=== PATIENT | female | born 1935 | race Caucasian/White ===

== ENCOUNTER 2017-09-07 02:03 | Emergency (ER) | payer OTHER, MEDICARE ==
[~2017-09-07] VITALS: Ht 154.9 cm; Wt 52.2 kg
[~2017-09-07 02:03] MED LIST: ARNUITY ELLIP100 MCG INH; MACROBID 100 M100 MG PO
[2017-09-07 03:01] LABS: ABSOLUTE BASOPHIL COUNT 0 /CUMM (0.0-0.2); ABSOLUTE EOSINOPHIL COUNT 0 /CUMM (0.0-0.7); ABSOLUTE GRANULOCYTE CT 6.7 /CUMM (1.4-6.5); ABSOLUTE LYMPH COUNT 0.9 /CUMM (1.2-3.4); ABSOLUTE MONOCYTE COUNT 0.7 /CUMM (0.10-0.60); BASOPHIL % 0.1 % (0.0-2.0); EOSINOPHIL % 0.1 % (0-5); GRANULOCYTE % 80.9 % (42.2-75.2); MEAN CORPUSCULAR HGB 30.4 PG (27.0-31.0); MEAN CORPUSCULAR HGB CONC 33.7 G/DL (33.0-37.0); MEAN CORPUSCULAR VOLUME 90.2 FL (81.0-99.0); MEAN PLATELET VOLUME 9.6 FL (7.4-10.4); PLATELET COUNT 254 /CUMM (130-400); RED BLOOD CELL CT 4.43 /CUMM (4.20-5.40); WHITE BLOOD CELL COUNT 8.3 /CUMM (4.8-10.8)
--- NOTE | 2017-09-07 03:07 | ED GENERAL ADULT ---
History of Present Illness General Chief Complaint: General Adult Stated Complaint: BIBA KNEE PAIN; MULTIPLE COMPLAINTS Source: patient, old records, EMS Exam Limitations: no limitations Vital Signs & Intake/Output Vital Signs & Intake/Output Vital Signs Date Time Temp Pulse Resp B/P B/P Pulse O2 O2 Flow FiO2 Mean Ox Delivery Rate 09/07 0304 100.2 77 18 157/64 96 Room Air 09/07 0208 99.3 85 18 149/72 6 Room Air Allergies Coded Allergies: moxifloxacin (From AVELOX) (Severe, HIVES 09/07/17) azithromycin ("DOESN'T WORK" 09/07/17) Z-CHRISTIAN Uncoded Allergies: "RED ABX CAPSULE" (UNKNOWN 09/07/17) Reconcile Medications Cephalexin (Keflex) 500 MG CAPSULE 1 CAP PO TID uti Fluticasone Furoate (Arnuity Ellipta) 100 MCG BLST.W.DEV 1 PUFF INH DAILY COPD Nitrofurantoin Monohyd/M-Cryst (Macrobid 100 MG Capsule) 100 MG CAPSULE 1 TAB PO BID UTI Triage Note: TRIAGE: BIBA FROM [facility] REPORTING W/ L KNEE PAIN SINCE MOTHERS DAY W/ NO INJURIES. ALSO C/O; SORE THROAT, NAUSEA SINCE MOTHERS DAY, ANXIOUS, FEVERISH, CHILLS. PATIENT IS VERY ANXIOUS ON ARRIVAL. PATIENT TOLD EMS, "CAN'T WALK," THOUGH STANDING W/O DIFFICULTY ON SCENE. Triage Nurses Notes Reviewed? yes Onset: Just prior to arrival Duration: week(s):, constant, continues in ED, getting worse Timing: recent history Injury Environment: home Severity: moderate Modifying Factors: Improves With: immobilization, medication, rest. Worsens With: movement. Associated Symptoms: cough LMP (ages 10-50): post menopausal : No Patient currently breastfeeds: No HPI: 10 days prior to admission patient complains of nasal congestion sore throat fatigue. Prior to admission she complains of increased left knee pain of arthritis unable to sleep. She also complains of urinary frequency today. She denies fever chills nausea vomiting diarrhea abdominal pain chest pain shortness breath headache dysuria rash bleeding. Past History Travel History Traveled to [place] past 21 day No Medical History Any Pertinent Medical History? see below for history Neurological: NONE EENT: sinusitis Cardiovascular: hypertension Respiratory: emphysema, DYSPNEA BRONCHIAL ASTHMA Gastrointestinal: colitis, CELIAC SPRUE LYMPHOCYTIC COLITIS DIARRHEA Hepatic: NONE Renal: NONE Musculoskeletal: fibromyalgia, CHRONIC PAIN KYPHOSCOLIOSIS ARTHRITIS Psychiatric: anxiety Endocrine: NONE Blood Disorders: NONE Cancer(s): PYOGENIC GRANULOMA DIRECTOR PEDIATRIC/Reproductive: NONE Surgical History Surgical History: non-contributory Psychosocial History What is your primary language Italian Tobacco Use: Never used Family History Hx Contributory? No Review of Systems Review of Systems Constitutional: Reports: see HPI, malaise. EENTM: Reports: see HPI, nasal congestion, throat pain. Respiratory: Reports: no symptoms. Cardiovascular: Reports: no symptoms. GI: Reports: no symptoms. Genitourinary: Reports: no symptoms. Musculoskeletal: Reports: see HPI, joint pain. Skin: Reports: no symptoms. Neurological/Psychological: Reports: no symptoms. Hematologic/Endocrine: Reports: no symptoms. Immunologic/Allergic: Reports: no symptoms. All Other Systems: Reviewed and Negative Physical Exam Physical Exam General Appearance: well developed/nourished, alert, awake, anxious, mild distress Head: atraumatic, normal appearance Eyes: Bilateral: normal appearance, PERRL, EOMI. Ears, Nose, Throat: hearing grossly normal, sinus pain/drainage, nasal congestion, pharyngeal erythema Neck: normal inspection, supple, full range of motion, no midline tenderness Respiratory: normal breath sounds, chest non-tender, no respiratory distress, quiet respiration, lungs clear Cardiovascular: regular rate/rhythm, normal peripheral pulses, norml femoral pulses equa Peripheral Pulses: 4+ carotid (R), 4+ carotid (L) Gastrointestinal: normal bowel sounds, soft, non-tender, no organomegaly Back: normal inspection, normal range of motion Extremities: normal capillary refill, limited range of motion, swelling, Arthritic left knee with limited range of motion and swelling Neurologic/Psych: no motor/sensory deficits, awake, alert, oriented x 3, normal mood/affect, washhouse hand II-XII nml as tested Reflexes: 2+: bicep (R), bicep (L). Skin: intact, normal color, warm/dry Lymphatic: no anterior cervical daniel Core Measures ACS in differential dx? No CVA/TIA Diagnosis: No Sepsis Present: No Sepsis Focused Exam Completed? No Progress Differential Diagnoses I considered the following diagnoses in my evaluation of the patient: Sinusitis pharyngitis arthritis fibromyalgia Plan of Care: Orders Procedure Date/time Status URINALYSIS 09/07 0322 Complete COMPREHENSIVE METABOLIC PANEL 05/18 0230 Complete CBC WITHOUT DIFFERENTIAL 09/07 229 Complete Current Medications Sig/Nereida Start time Last Medication Dose Stop Time Status Admin Ceftriaxone Sodium 1,000 MG ONCE ONE 09/07 444 UNVr (Rocephin) 09/07 445 Laboratory Tests 09/07/17 0347: Urinalysis LIGHT H, Urine Color YEL, Urine Clarity CLEAR, Urine pH 6.0, Ur Specific [place] 1.020, Urine Protein TRACE H, Urine Ketones NEG, Urine Nitrite NEG, Urine Bilirubin NEG, Urine Urobilinogen 0.2, Ur Leukocyte Esterase LARGE H , Ur Microscopic SEDIMENT EXAMINED, Urine RBC 10-15 H, Urine WBC > 75 H, Ur Epithelial Cells MOD H, Urine Bacteria MOD H, Urine Hemoglobin TRACE-INTACT, Urine Glucose NEG 09/07/17 0245: Anion Gap 14, Estimated GFR 53 L, BUN/Creatinine Ratio 19.0, Glucose 129 H, Calcium 10.0, Total Bilirubin 1.1, AST 27, ALT 18, Alkaline Phosphatase 107, Total Protein 8.4 H, Albumin 4.7, Globulin 3.7, Albumin/Globulin Ratio 1.3, CBC w Diff NO MAN DIFF REQ, RBC 4.43, MCV 90.2, MCH 30.4, MCHC 33.7, RDW 14.0, MPV 9.6, Gran % 80.9 H, Lymphocytes % 10.8 L, Monocytes % 8.1, Eosinophils % 0.1, Basophils % 0.1, Absolute Granulocytes 6.7 H, Absolute Lymphocytes 0.9 L, Absolute Monocytes 0.7 H, Absolute Eosinophils 0, Absolute Basophils 0 Initial ED EKG: none Departure Departure Time of Disposition: 432 Disposition: HOME OR SELF CARE Condition: Stable Clinical Impression Primary Impression: UTI (urinary tract infection) Qualifiers: Urinary tract infection type: site unspecified Hematuria presence: without hematuria Qualified Code: N39.0 - Urinary tract infection, site not specified Secondary Impressions: Degenerative arthritis of knee Qualifiers: Osteoarthritis type: primary Laterality: left Qualified Code: M17.12 - Unilateral primary osteoarthritis, left knee URTI (acute upper respiratory infection) Referrals: Salvador James MD (PCP/Family) Departure Forms: Customer Survey General Discharge Information Prescriptions: Current Visit Scripts Cephalexin (Keflex) 1 CAP PO TID #21 CAP Critical Care Note Critical Care Note Critical Care Time: non-applicable ED Attending Observation Initial Observation Note: I have seen and personally examined NORMA HAMILTON on 09/07/17 at 0439. I agree with the current emergency department documentation. The disposition (admission or discharge) is uncertain at this time, she needs a period of observation for the following reason(s): The ED Nurse caring for this patient has been personally informed as to what the patient is being observed for.
--- NOTE | 2017-09-07 04:29 | RADIOLOGY REPORT ---
EXAMINATION: CHEST 2 VIEWS CLINICAL INFORMATION: Cough, weakness. COMPARISON: September 26, 2015. TECHNIQUE: PA and lateral views of the chest were obtained. FINDINGS: The cardiac silhouette is stable. The mediastinal and hilar contours are unremarkable. There are neither pleural effusions nor pneumothoraces. There are no consolidations. There is moderate thoracic dextroscoliosis. The osseous structures are stable. There is accentuation of thoracic kyphosis with a midthoracic spine compression fracture. Spinal stimulator electrodes overlie the lower thoracic spine. IMPRESSION: No evidence for acute disease.
[2017-09-07] MEDS ORDERED: KEFLEX500 M1 PO (04:35)
[2017-09-07 04:46] VITALS: BP 141/63
== END 2017-09-07 05:53 ==
LOC: ERH 02:03
PROVIDERS: Emergency Medicine
DX: N39.0 Urinary tract infection, site not specified (principal); M17.12 Unilateral primary osteoarthritis, left knee; J06.9 Acute upper respiratory infection, unspecified
CPT/HCPCS: 71046; 81001; 96374; 96375; J0696; J2405